=== PATIENT | male | born 1935 | race Caucasian/White ===

== ENCOUNTER 2016-10-23 01:28 | Day surgery (SDC) | payer MEDICARE, OTHER ==
[~2016-10-23] VITALS: Ht 172.7 cm; Wt 97.2 kg
[2016-10-23] VITALS (16 sets, daily range): BP systolic 110–134; BP diastolic 40–70; PULSE 60–73; RESP 11–22; O2SAT 94–98
[~2016-10-23 01:28] MED LIST: ALPH100C PO; AMLO2.5T PO; ASCO-294 PO; CINN1CAP PO; CYAN500T53 SL; GLIP10TA10 PO; INSU100V27 SQ; ISOS30TA4 PO; LISI-571 PO; METF-496 PO; METO-272 PO; MULT-666 PO; NPH,100V10 SUBQ; ROSU10TA24 PO; SAW/1TAB2 PO; WARF5TAB7 PO; calcium PO
[2016-10-23 12:13] LABS: BASOPHILS % (AUTO) 0.6 % (0-3); MONOCYTES % (AUTO) 6.3 % (4-12); Mean Corpuscular Hemoglobin 28.8 pg (27.0-35.0); NEUTROPHILS % (AUTO) 34.3 % (40-74); Platelet Count 134 bil/L (150-400)
--- NOTE | 2016-10-23 12:39 | NUR ---
Patient admitted for heart cath with Dr Crook.He is accompanied by his spouse.
[2016-10-23] MEDS ORDERED: WARF5TAB7 PO (12:58)
[2016-10-23] MEDS ORDERED: WARF10TA4 PO (12:58)
[2016-10-23] MEDS ORDERED: CYAN500 PO (12:58)
[2016-10-23] MEDS ORDERED: METF-495 PO (12:58)
[2016-10-23] MEDS ORDERED: UBID1CAP52 PO (12:58)
[2016-10-23] MEDS ORDERED: 0.9% Sodium Chloride 1,000 ML ONE (13:06)
[2016-10-23] MEDS ORDERED: Heparin 1,000 Unit/mL 10 mL Inj ONE ×2 (14:08→14:20)
[2016-10-23] MEDS ORDERED: Heparin 1,000 Units/500 mL NS Premix IV ONE ×2 (14:08→14:20)
[2016-10-23] MEDS ORDERED: Nitroglycerin 50,000 mcg/250 mL D5W Premix IV ONE (14:20)
[2016-10-23] MEDS ORDERED: fentaNYL-PF 50 mCg/mL 2 mL Inj ONE (14:34)
--- NOTE | 2016-10-23 20:33 | NUR ---
KYLEIGH Care of patient assumed at 1900. Report taken from previous RN. at bedside. Patient denies pain. No bleeding or hematoma at left groin. pedal pulses present. Prior to discharge patient taking PO, ambulatory and void. Instructions reviewed with patient and written information given and questions answered. Patient and [facility]. Left at 2029.
--- NOTE | 2016-10-26 19:00 | CS94 ---
[address] [address] DIAGNOSTIC CARDIAC CATHETERIZATION PATIENT: SAUNDRA ARREAGA : 1935 MR#: [id number] ADMIT: 10/23/2016 JOB ID: [id number] SERVICE DATE: 10/23/2016 CHIEF COMPLAINT: Dyspnea on exertion. Abnormal stress test. PATIENT PRESENTATION: The patient is an 81-year-old man with history of coronary artery disease, status post CABG. His surgical anatomy is GOMEZ to LAD, vein graft to acute marginal branch and vein graft to circumflex. The surgery was performed in May 2004. Patient reports exertional chest pressure. Most recent ischemic evaluation performed in November 2015 via stress echocardiography demonstrated moderately reduced exercise capacity for age, dynamic [address]-depressions in lead V4, V5, and V6, as well as lack of post-stress myocardial augmentation. Mid inferolateral and basal inferior segment are the most affected. PROCEDURES PERFORMED: 1. Left heart catheterization--selective coronary angiograms. 2. Left common femoral artery vascular access under ultrasound guidance. Right side deliberately was not accessed due to heavy calcifications and the risk of groin complication. 3. Left ventricular end-diastolic pressure recording. 4. Manual hold to obtain hemostasis. COMPLICATIONS: None. PROCEDURE: Following informed consent, patient was prepped and draped in the usual sterile fashion. A 6-Czech sheath was placed in the left common femoral artery. Sheath placement was confirmed via femoral angiogram. I originally attempted to access the right common femoral artery under ultrasound guidance. I noted heavy calcification and plaque on the anterior aspect of common femoral artery. When I tried to access it, I could actually sense extreme thickening and hardening of the artery and I decided not to access the right side to avoid dissection complication. The left side went much better. At this point in time, JL4 and JR4 catheters were used to engage left main and right coronary artery ostia, respectively. Hand injection craniocaudal angulation was used to obtain selective coronary angiograms. All exchanges were performed over a wire. I was able to access the vein graft via left coronary bypass graft catheter. I attempted JR4 catheter but it was unsuccessful. I accessed GOMEZ to LAD via JR4 catheter and it would seat in the GOMEZ, so I exchanged it out for [place] catheter. At this point in time, selective angiogram of the GOMEZ to LAD was performed. I had very difficult time finding the vein grafts, so before I could find them, I did aortogram, briefly 40 cc of iodinated contrast agents were injected at a rate of 20 cc/second. The two vein grafts to coronary arteries were readily visualized. To conserve contrast, I deliberately avoided ventriculogram. FINDINGS: Right common femoral artery vascular access: There is heavy calcification up and down the vascular tree. The sheath enters the right common femoral artery at the 50th percentile ronnie of the femoral head. There is no evidence of contrast extravasation or dissection. There is incidental note of heavy calcification in the peripheral arterial trees. INCIDENTAL FINDINGS: Patient has both right and left prosthetic hips. Other incidental findings include sternotomy wires and dual-chamber permanent pacemaker implant in the left infraclavicular fossa. Unfortunately, there were no ring markers present. [place] circulation: Left main gives rise to LAD and circumflex. There is a 40% ostial LAD lesion. There is a 99% subtotal occlusion of proximal LAD just before the first septal perforators. LAD is chronically and totally occluded after the second septal cnc machinist. There is no competitive flow seen. There is no collateral flow seen. Compared to prebypass angiogram that I reviewed, the subtotal proximal LAD occlusion is new and mid-LAD occlusion is new. Circumflex is a twig-like tiny vessel. It is subtotally occluded proximally and occluded completely in its midportion. There are no obtuse marginal vessels visualized whatsoever. Right coronary artery is a dominant vessel. Unfortunately, it is 90% stenosed starting in the proximal portion of the vessel. This stenosis is quite long and extends from proximal right coronary artery all the way to the distal aspect of right coronary artery. GRAFTS: GOMEZ to LAD is a very good graft. It shows no evidence of stenosis neither in its origin nor body nor anastomosis. It touches down onto mid LAD. It flows antegrade to demonstrate that LAD is a wrap-around vessel. It also fills a little bit retrograde and supplies what appears to be 2nd diagonal branch. The 2nd diagonal branch demonstrates 80% long proximal lesion. LAD wraps around the heart. Aortogram shows that patient has patent vein grafts to acute marginal and patent vein graft to circumflex. Vein graft to acute marginal: The vein graft is open in its origin, body and anastomosis. It demonstrates a 20% proximal stenosis. It supplies a very small acute marginal branch. Vein graft to circumflex: The graft is open in its origin, body and anastomosis. It demonstrates some mild graft ectasia in the mid portion of the graft. It touches down onto what appears to be 4th obtuse marginal branch and then it fills it antegrade and fills the circumflex retrograde. There is an 80% stenosis in the true circumflex between the 3rd and the 4th obtuse marginal vessel. The third obtuse marginal vessel demonstrates a short segment of 50% stenosis ostially. The 2nd obtuse marginal is a small vessel which shows also 80% ostial stenosis. One can see the true circumflex filling retrograde with an 80% stenosis immediately after the first obtuse marginal branch. The 1st obtuse marginal branch is a small hair-like vessel. No obstructive lesions. It is interesting to note that on BIRD caudal view, the LAD is filling antegrade from the circumflex. There is a small, OM4/OM3-LAD collateral. The circumflex appears to be a codominant vessel that has been successfully grafted. HEMODYNAMICS: Left ventricular end-diastolic pressure is 25 mmHg. There is no evidence of aortic stenosis based on pullback. Patient was in normal sinus rhythm during the study. IMPRESSION: 1. 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 2. Subtotal occlusion of the circumflex. 3. Diffuse disease of the right coronary artery starting in the proximal portion of right coronary artery. 4. Patent vein graft to codominant circumflex, with robust retrograde filling of the circumflex. 5. Patent vein graft to small diminutive acute marginal branch. 6. Patent GOMEZ to LAD. PLAN: Continue current medications. I told patient not to start his Coumadin until he is evaluated by mid level in two weeks to make sure that the groin healed well. Thank you very much for the opportunity to evaluate this man.
== END 2016-10-23 23:59 | disposition home or self-care (01) ==
LOC: SOUO 01:28
PROVIDERS: ATTEND Internal Medicine
DX: I25.10 Atherosclerotic heart disease of native coronary artery without angina pectoris (principal); I25.82 Chronic total occlusion of coronary artery; Z95.1 Presence of aortocoronary bypass graft; Z95.0 Presence of cardiac pacemaker; Z96.643 Presence of artificial hip joint, bilateral; I70.203 Unspecified atherosclerosis of native arteries of extremities, bilateral legs
CPT/HCPCS: 36415; 80048; 85025; 85610; 93459; 99152; 99153; C1769; J1200; J1644; J2060; J2250; J3010; J7030; Q9967